=== PATIENT | male | born 1960 | race Caucasian/White ===

== ENCOUNTER 2019-02-17 17:35 | Inpatient (IN) | payer MEDICARE ==
[2019-02-17] MEDS ORDERED: Labetalol HCl 100 MG/20 ML VIAL SLOW IVP PRN (18:37)
[2019-02-17] MEDS ORDERED: Acetaminophen 325 MG TAB PO PRN (18:37)
[2019-02-17] MEDS ORDERED: hydrALAZINE 20 MG/ML VIAL SLOW IVP PRN (18:37)
[2019-02-17] MEDS ORDERED: Ondansetron PF 4 MG/2 ML Vial IVP PRN (18:37)
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
[2019-02-17] MEDS ORDERED: Aminocaproic Acid 5 GM in Sodium Chloride 0.9% 250 ML 250 ML IV SCH ×2 (18:45→20:45)
[2019-02-17] MEDS ORDERED: Aminocaproic Acid 1 GM in Sodium Chloride 0.9% 250 ML 250 ML IV SCH (18:45)
[2019-02-17] MEDS ORDERED: niCARdipine HCl 25 MG in Sodium Chloride 0.9% 250 ML 240 ML IVPB SCH (19:00)
[2019-02-17 19:23] LABS: #Eosinphils 0.1 thou/uL (0.0-0.7); #Lymphocytes 1.8 thou/uL (1.20-3.40); #Monocytes 0.8 thou/uL (0.11-0.59); #Neutrophils 9.7 thou/uL (1.40-6.50); %Basophils 0.4 % (0.0-1.0); %Eosinophils 0.6 % (0.0-10.0); %Lymphocytes 14.2 % (21.0-51.0); %Monocytes 6.4 % (0.0-10.0); %Neutrophils 78.4 % (42.0-75.0); Mean Corpuscular HGB CONC 33.5 g/dL (32.0-36.0); Mean Corpuscular Hemoglobin 32.3 pg (27.0-31.0); Mean Corpuscular Volume 96.3 fL (78.0-98.0); Mean Platelet Volume 6.9 fL (7.4-10.4); Platelet Count 291 thou/uL (130-400); RBC Distribution Width 12.2 % (11.5-14.5); Red Blood Cell (RBC) Count 5.26 mill/uL (4.70-6.10); White Blood Cell (WBC) Count 12.4 thou/uL (4.8-10.8)
[2019-02-17 19:30] LABS: INR-International Normal Ratio 0.9; PTT 24.8 SEC (22.9-36.1); Prothrombin Time 12.3 SEC (12.0-14.7)
--- NOTE | 2019-02-17 19:34 | CT ---
EXAM: CTA Angio Head W WO Con 3-D reconstruction images are provided PROVIDED CLINICAL HISTORY: Subarachnoid hemorrhage. COMPARISON: Noncontrast CT head on 02/17/2019 FINDINGS: Mild atherosclerotic irregularity is seen involving the internal carotid arteries at the level of the carotid siphons. There is a small approximately 2 mm outpouching seen near the region of the PCOM position on the right suggestive of a tiny aneurysm. No additional aneurysm is seen involving the cir hakeem of Wade or vertebrobasilar system within the limitations of this examination. There is suggested mild irregularity involving the M1, M2 and portions of the M3 segment of the right middle cerebral artery which is likely attributable to vasospasm secondary to subarachnoid hemorrhage. The left middle cerebral artery as well as anterior cerebral arteries are patent. The distal vertebral arteries, basilar artery, and posterior cerebral arteries are patent. Subarachnoid hemorrhage is again seen in the cerebral hemispheres bilaterally better visualized on th e noncontrast CT scan examination obtained earlier on today's date. IMPRESSION: 1. Small approximately 2 mm aneurysm near the PCOM position on the right. 2. Slight irregularity involving the margins of the right middle cerebral artery as described above w hich could be related to vasospasm secondary to subarachnoid hemorrhage. 3. Above findings were discussed with Dr. Olvera in the emergency department on 02/17/2019 at [facility].
[2019-02-17 19:42] LABS: ALT (SGPT) 72 U/L (8-55); AST (SGOT) 65 U/L (5-34); Albumin 4.1 g/dL (3.5-5.0); Alcohol Less than 10 mg/dL (Less than 10); Alkaline Phosphatase 88 U/L (40-150); Anion Gap 15 mmol/L (10-20); BUN (Urea Nitrogen) 13 mg/dL (8.4-25.7); Bilirubin, Total 0.6 mg/dL (0.2-1.2); Calc. Creatinine Clearance 0 mL/min (70-130); Calcium 9.2 mg/dL (7.8-10.44); Carbon Dioxide 25 mmol/L (22-29); Chloride 97 mmol/L (98-107); Estimated GFR-MDRD 82; Globulin 3.3 g/dL (2.4-3.5); Glucose 93 mg/dL (70-105); Potassium 4.3 mmol/L (3.5-5.1); Protein, Total 7.4 g/dL (6.0-8.3); Sodium 133 mmol/L (136-145)
[2019-02-17] MEDS ORDERED: Tranexamic Acid 1,000 MG/10 ML VIAL ONE ×2 (19:55→20:04)
[2019-02-17] MEDS ORDERED: Ondansetron PF 4 MG/2 ML Vial ONE ×2 (20:01→20:04)
[2019-02-17] MEDS: niMODipine 30 MG CAP PO SCH (22:45)
[2019-02-17] MEDS: Sodium Chloride 0.9% 1,000 ML IV SCH (22:45)
[2019-02-17] MEDS: Morphine 2 MG/ML SYRINGE SLOW IVP PRN (23:22)
[2019-02-17 23:40] VITALS: BMI 24.3
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
[2019-02-18] MEDS: niMODipine 30 MG CAP PO SCH ×4 (00:36→13:45)
[2019-02-18] MEDS: Morphine 2 MG/ML SYRINGE SLOW IVP PRN ×5 (03:35→15:04)
[2019-02-18 05:40] LABS: %Lymphocytes 6.2 % (21.0-51.0); %Monocytes 5.2 % (0.0-10.0); %Neutrophils 88.2 % (42.0-75.0); Hemoglobin 15.6 g/dL (14.0-18.0); Mean Corpuscular HGB CONC 32.8 g/dL (32.0-36.0); Mean Corpuscular Hemoglobin 32.1 pg (27.0-31.0); Mean Corpuscular Volume 97.9 fL (78.0-98.0); Mean Platelet Volume 7.2 fL (7.4-10.4); Platelet Count 269 thou/uL (130-400); RBC Distribution Width 12.2 % (11.5-14.5); Red Blood Cell (RBC) Count 4.85 mill/uL (4.70-6.10); White Blood Cell (WBC) Count 17.9 thou/uL (4.8-10.8)
[2019-02-18 05:41] LABS: #Lymphocytes 1.1 thou/uL (1.20-3.40); #Monocytes 0.9 thou/uL (0.11-0.59); #Neutrophils 15.8 thou/uL (1.40-6.50); %Basophils 0.2 % (0.0-1.0); %Eosinophils 0.2 % (0.0-10.0)
[2019-02-18 06:01] LABS: Anion Gap 16 mmol/L (10-20); BUN (Urea Nitrogen) 11 mg/dL (8.4-25.7); Calc. Creatinine Clearance 85 mL/min (70-130); Carbon Dioxide 19 mmol/L (22-29); Chloride 103 mmol/L (98-107); Estimated GFR-MDRD 79; Glucose 128 mg/dL (70-105); Potassium 4.4 mmol/L (3.5-5.1); Sodium 134 mmol/L (136-145)
[2019-02-18] MEDS ORDERED: Docusate 100 MG CAP PO PRN (07:52)
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
[2019-02-18 08:47] VITALS: TEMP 97.9
[2019-02-18] MEDS: Sodium Chloride 0.9% 1,000 ML IV SCH (08:52)
--- NOTE | 2019-02-18 12:27 | PRG ---
DATE OF SERVICE: 02/18/2019 SUBJECTIVE: The patient is seen and examined, agree with Donna Gates's evaluation, 02/17/2019. The patient is a 58-year-old man, who had spontaneous sickness yesterday with diminished mental status and thunderclap headache. Currently, he is alert and slightly obtunded, but does arouse easily. Interacts with the examiner and is oriented x3. CT scan reveals diffuse subarachnoid hemorrhage. CT angiogram suggests a possible right paraclinoid aneurysm. IMPRESSION AND PLAN: The patient has diffuse subarachnoid hemorrhage and a possible aneurysm. He will get an angiogram today with possible coiling, if the aneurysm can be defined. I discussed this with the patient. No family is available. Job ID: [id number]
== END 2019-02-18 15:00 | disposition short-term general hospital (02) | DRG 86 ==
LOC: EDBD 17:35 → ERS 17:35 → CCU 22:25
PROVIDERS: ADMIT Neurological Surgery; ATTEND Neurological Surgery
DX: S06.6X0A Traumatic subarachnoid hemorrhage without loss of consciousness, initial encounter (principal); I16.1 Hypertensive emergency; E87.1 Hypo-osmolality and hyponatremia; F17.210 Nicotine dependence, cigarettes, uncomplicated; D72.829 Elevated white blood cell count, unspecified; R73.9 Hyperglycemia, unspecified; F41.9 Anxiety disorder, unspecified; F31.9 Bipolar disorder, unspecified; W18.30XA Fall on same level, unspecified, initial encounter; Y92.010 Kitchen of single-family (private) house as the place of occurrence of the external cause; Z79.899 Other long term (current) drug therapy; Z88.5 Allergy status to narcotic agent
CPT/HCPCS: 36415; 70450; 70496; 80048; 80053; 80307; 85025; 85610; 85730; 93005; J2270; J2405; J7050; S0017